=== PATIENT | male | born 1990 | race Caucasian/White ===

== ENCOUNTER 2024-01-02 14:47 | Emergency (ER) | payer OTHER ==
[~2024-01-02] VITALS: Ht 175.3 cm; Wt 114.5 kg
[2024-01-02 15:01] VITALS: O2SAT 96
[2024-01-02] MEDS ORDERED: DICL100G58 TP (15:16)
[2024-01-02] MEDS ORDERED: LIDO700A15 TP (15:16)
[2024-01-02] MEDS ORDERED: METH-653 MT (15:16)
[2024-01-02 15:19] VITALS: BP 119/63; PULSE 99; RESP 18; TEMP 98.2
== END 2024-01-02 15:20 | disposition home or self-care (01) ==
LOC: ER 14:47
DX: M54.50 Low back pain, unspecified (principal)
CPT/HCPCS: 99281; 99283